=== PATIENT | female | born 1985 | race American Indian/Alaskan Native ===

== ENCOUNTER 2019-03-22 14:19 | Emergency (ER) | payer SELFPAY ==
[2019-03-22 14:47] VITALS: BP 134/89
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
== END 2019-03-22 15:47 ==
LOC: ED 14:19
DX: R51 Headache (principal); M79.10 Myalgia, unspecified site; Z53.21 Procedure and treatment not carried out due to patient leaving prior to being seen by health care provider

== ENCOUNTER 2019-10-31 12:17 | Emergency (ER) | payer SELFPAY ==
[2019-10-31] MEDS ORDERED: diphenhydrAMINE 50 MG/ML VIAL IM ONE (12:28)
[2019-10-31] MEDS ORDERED: ZIPRASIDONE MESYLATE 20 MG VIAL IM ONE (12:28)
[2019-10-31] MEDS ORDERED: WATER FOR INJ Sterile (PF) 10 ML ONE (12:32)
[2019-10-31 15:25] LABS: Hematocrit 41.1 % (30.3-42.9); Hemoglobin 13.1 gm/dl (10.1-14.3); Mean Corpuscular HGB Conc 32 % (30-34); Mean Corpuscular Volume 90 fl (79-97); Platelet Count 489 K/mm3 (140-440); Red Blood Count 4.58 M/mm3 (3.65-5.03); Red Cell Distribution Width 14.2 % (13.2-15.2)
[2019-10-31 15:34] LABS: BUN/Creatinine Ratio 20; Blood Urea Nitrogen 10 mg/dL (7-17); Calcium 9.7 mg/dL (8.4-10.2); Hemolysis Index 17
[2019-10-31 16:12] LABS: Basophils % (Manual) 0 % (0.0-1.8); Eosinophils % (Manual) 0 % (0.0-4.3); RBC Morphology Normal; Total Cells Counted 100
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
[2019-10-31 19:17] LABS: Bacteria,Urine 2+ /HPF (Negative); Bilirubin,Urine NEG (Negative); Blood,Urine LG (Negative); Color,Urine Yellow (Yellow); Hyaline Casts,Urine 1 /LPF; Mucus,Urine 1+ /HPF; Urobilinogen,Urine < 2.0 mg/dL (<2.0)
[2019-10-31 19:25] LABS: Methadone Screen,Urine PRESUMPTIVE NEGATIVE; Opiate Screen,Urine PRESUMPTIVE NEGATIVE
[2019-10-31 19:40] LABS: Amphetamine Screen,Urine PRESUMPTIVE POSITIVE; Benzodiazepines Screen,Urine PRESUMPTIVE POSITIVE; Cannabinoid Screen,Urine PRESUMPTIVE POSITIVE; Cocaine Screen,Urine PRESUMPTIVE POSITIVE
[2019-10-31] MEDS ORDERED: NITROFURANTOIN MONOHYD/M-CRYST 100 MG CAP PO ONE (20:50)
[2019-11-01] MEDS ORDERED: ZIPRASIDONE MESYLATE 20 MG VIAL IM ONE (04:05)
[2019-11-01] MEDS ORDERED: WATER FOR INJ Sterile (PF) 10 ML ONE (04:09)
[2019-11-01] MEDS: diphenhydrAMINE 50 MG/ML VIAL IM PRN ×2 (04:12→15:02)
[2019-11-02] MEDS: diphenhydrAMINE 50 MG/ML VIAL IM PRN (05:00)
[2019-11-02] MEDS ORDERED: ZIPRASIDONE MESYLATE 20 MG VIAL IM ONE (09:34)
[2019-11-02] MEDS ORDERED: LORazepam 2 MG/ML VIAL IM ONE (09:35)
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
[2019-11-02] MEDS ORDERED: MELATONIN 5 MG TAB PO PRN (12:21)
[2019-11-02] MEDS ORDERED: ZIPRASIDONE MESYLATE 20 MG VIAL IM SCH (13:00)
[2019-11-02] MEDS: ZIPRASIDONE MESYLATE 20 MG VIAL IM PRN (19:30)
[2019-11-03] MEDS: risperiDONE 0.25 MG TAB PO SCH ×3 (02:48→23:09)
[2019-11-03] MEDS: DIVALPROEX DR 250 MG TAB PO SCH ×3 (02:48→23:09)
[2019-11-03] MEDS: traZODone 50 MG TAB PO SCH ×2 (02:48→23:09)
[2019-11-03] MEDS: ZIPRASIDONE MESYLATE 20 MG VIAL IM PRN (07:30)
[2019-11-03 11:03] LABS: Hematocrit 37.5 % (30.3-42.9); Hemoglobin 12.4 gm/dl (10.1-14.3); Mean Corpuscular HGB Conc 33 % (30-34); Mean Corpuscular Volume 87 fl (79-97); Platelet Count 503 K/mm3 (140-440); Red Blood Count 4.29 M/mm3 (3.65-5.03); Red Cell Distribution Width 14.4 % (13.2-15.2)
--- NOTE | 2019-11-03 14:30 | Progress Note ---
Subjective - Reason for Consult Consult date: 11/03/19 Reason for consult: psychiatric assessment - Chief Complaint Chief complaint: unable to assess the patient ,the patient is current in seclusion and sleeping, will follow the patient and reassess when she is out of seculsion and is able to converse. Mental Status Exam - Vital signs Last Vital Signs Temp 98.8 F 11/03/19 10:00 Pulse 89 11/03/19 10:00 Resp 18 11/03/19 10:00 BP 96/60 11/03/19 10:00 Pulse Ox 98 11/03/19 10:00
[2019-11-03] MEDS ORDERED: ACETAMINOPHEN 325 MG TAB PO ONE (19:16)
[2019-11-03] MEDS: diphenhydrAMINE 50 MG/ML VIAL IM PRN (22:12)
[2019-11-04] MEDS ORDERED: WATER FOR INJ Sterile (PF) 10 ML ONE (07:40)
[2019-11-04] MEDS: ZIPRASIDONE MESYLATE 20 MG VIAL IM PRN (07:45)
[2019-11-04] MEDS: DIVALPROEX DR 250 MG TAB PO SCH ×2 (12:00→21:35)
[2019-11-04] MEDS: risperiDONE 0.25 MG TAB PO SCH ×2 (12:00→21:34)
--- NOTE | 2019-11-04 16:16 | Progress Note ---
Subjective - Reason for Consult Consult date: 11/04/19 Reason for consult: psychiatric assessment - Chief Complaint Chief complaint: eviewed medical record and discussed with nursing staff patient's progress. per patient chart . Pt resting quietly on recliner, resp even and non labored, no acute distress noted, no behaviors or s/s of self harm noted, able to make needs known, ambulates as needed to restroom. During my interview with the patient today she is aaox4, she reports eating and sleeping well. she denies SI/HI. She states, "I am seeing faces and still hearing voices, but i realized they are mind". ROS Constitutional:Negative for weight loss ENT: Negative for stridor Respiratory: Negative for cough All systems reviewed and are negative Mental Status Exam Appearance: quite Behavior: calm and cooperative. Mood: "good Affect: flat Thought Process: Goal directed Speech: slow Thought Content Harmfulness: Denies Hallucinations: yes Delusions: paranoia Consciousness: Alert Cognition/Memory: good Insight/Judgment: poor Assessment mdd ,psychosis bipolar Recommendations: continue medication regimen MEDICAL: Per primary team DELIRIUM PRECAUTIONS: Please TURN OFF THE TV, re-orient patient frequently, keep lights on during the day, and minimize and opiates as these medications could worsen patient's confusion. 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
[2019-11-04] MEDS: traZODone 50 MG TAB PO SCH (21:34)
[2019-11-05] MEDS: risperiDONE 0.25 MG TAB PO SCH (11:02)
[2019-11-05] MEDS: DIVALPROEX DR 250 MG TAB PO SCH (11:02)
--- NOTE | 2019-11-05 15:14 | Progress Note ---
Subjective - Reason for Consult Consult date: 11/05/19 Reason for consult: psychiatric assessment - Chief Complaint Chief complaint: Reviewed medical record and discussed with nursing staff patient's progress. per patient chart . no behaviors or s/s of self harm noted, able to make needs known During my interview with the patient today she is aaox4, she reports eating and sleeping well. she denies SI/HI. She states, "I feel good, I am still seeing Aria ble head, and hearing voices but, realized they are my voices". she reports feeling better and taking one day at a time. the patient appears paranoid ROS Constitutional:Negative for weight loss ENT: Negative for stridor Respiratory: Negative for cough All systems reviewed and are negative Mental Status Exam Appearance: quite Behavior: calm and cooperative. Mood: "good Affect: flat Thought Process: Goal directed Speech: pressured Thought Content Harmfulness: Denies Hallucinations: yes Delusions: paranoia Consciousness: Alert Cognition/Memory: good Insight/Judgment: poor Assessment mdd ,psychosis bipolar Recommendations: continue current medication regimen start prozac 20mg daily start vistaril 25mg PRN ANXIETY MEDICAL: Per primary team DELIRIUM PRECAUTIONS: Please TURN OFF THE TV, re-orient patient frequently, keep lights on during the day, and minimize and opiates as these medications could worsen patient's confusion. 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
[2019-11-05] MEDS ORDERED: hydrOXYzine PAMOATE 25 MG CAP PO PRN (15:25)
[2019-11-05 20:08] VITALS: BP 117/67
[2019-11-06] MEDS ORDERED: FLUoxetine 20 MG CAP PO SCH (10:00)
== END 2019-11-05 20:30 ==
LOC: ED 12:17 → EEVIPCON 12:17 → ED 11-05 20:30
DX: F29 Unspecified psychosis not due to a substance or known physiological condition (principal); F13.10 Sedative, hypnotic or anxiolytic abuse, uncomplicated; F12.10 Cannabis abuse, uncomplicated; N39.0 Urinary tract infection, site not specified; E11.9 Type 2 diabetes mellitus without complications; Z88.2 Allergy status to sulfonamides; Z88.8 Allergy status to other drugs, medicaments and biological substances; Z79.84 Long term (current) use of oral hypoglycemic drugs
CPT/HCPCS: 36415; 80048; 80307; 81001; 82962; 84703; 85007; 85025; 85027; 87086; 93005; 93010; 96372; 99285; J1200; J2060; J3486; 80320; G0480

== ENCOUNTER 2020-09-09 11:22 | Outpatient (CLI) | payer OTHER ==
--- NOTE | 2020-09-09 12:54 | XRay Report ---
CERVICAL SPINE 3 VIEWS INDICATION / CLINICAL INFORMATION: NECK /BACK PAIN COMPARISON: None available. FINDINGS: BONES / JOINT(S): No acute fracture or subluxation. No significant DDD or DJD. Small anterior osteoph yte C4 inferiorly. SOFT TISSUES: No significant abnormality. ADDITIONAL FINDINGS: None. Signer Name: Pito Cardona MD Signed: 09/09/2020 12:49 PM Workstation Name: [id number]
== END 2020-09-09 11:23 | disposition home or self-care (01) ==
LOC: XRAY 11:22
PROVIDERS: ATTEND Internal Medicine
DX: M25.78 Osteophyte, vertebrae (principal)
CPT/HCPCS: 72040

== ENCOUNTER 2022-03-11 11:16 | Outpatient (CLI) | payer OTHER ==
--- NOTE | 2022-03-11 13:11 | XRay Report ---
CERVICAL SPINE 3 VIEWS 1152 INDICATION: BACK PAIN, disability evaluation COMPARISON: 09/09/2020 FINDINGS: No soft tissue swelling is seen. Disc spaces are maintained. No fractures or subluxation ar e noted. Anterior osteophyte formation is noted moderately at C4-5. No significant changes are seen. LUMBAR SPINE 3 VIEWS 1159 INDICATION: BACK PAIN COMPARISON: None available. FINDINGS: No fractures or subluxations are seen. Disc spaces are maintained. No significant abnormali ties are noted. PELVIS AP 1158 INDICATION: Pelvic pain COMPARISON: None available. FINDINGS: Detail is mildly limited by overlying pannus. No fractures or dislocation are seen. No sign ificant arthritic changes are noted. No focal bony lesions are seen. Signer Name: Alexander Ovalle MD Signed: 03/11/2022 1:07 PM Workstation Name: [id number]
== END 2022-03-11 11:17 | disposition home or self-care (01) ==
LOC: XRAY 11:16
PROVIDERS: ATTEND Internal Medicine
DX: M25.78 Osteophyte, vertebrae (principal); R10.2 Pelvic and perineal pain; M54.2 Cervicalgia; M54.50 Low back pain, unspecified
CPT/HCPCS: 72040; 72100; 72170